=== PATIENT | male | born 1980 | race Caucasian/White ===

== ENCOUNTER 2024-06-02 13:07 | Inpatient (IN) | payer OTHER ==
[2024-06-02 14:17] VITALS: BMI 29.2
[2024-06-02] MEDS ORDERED: NALOXONE (NARCAN) HCL 4 MG/0.1 ML SPRAY NS PRN (14:42)
[2024-06-02] MEDS ORDERED: IBUPROFEN 600 MG TABLET (FP) PO PRN (14:42)
[2024-06-02] MEDS ORDERED: BENZONATATE 200 MG CAPSULE PO PRN (14:42)
[2024-06-02] MEDS ORDERED: POLYETHYLENE GLYCOL (HEALTHYLAX) 3350 17 GM PACKET PO PRN (14:42)
[2024-06-02] MEDS ORDERED: guaiFENesin 600 MG TABLET.ER (FP) PO PRN (14:42)
[2024-06-02] MEDS ORDERED: MAGNESIUM HYDROX 2400MG/30ML ORAL SUSPENSION 30 ML CUP PO PRN (14:42)
[2024-06-02] MEDS ORDERED: BENZOCAINE/MENTHOL (CHLORASEPTIC ) LOZENGE MM PRN (14:42)
[2024-06-02] MEDS ORDERED: DICYCLOMINE HCL 10 MG CAPSULE PO PRN (14:42)
[2024-06-02] MEDS ORDERED: IBUPROFEN 400 MG TABLET (FP) PO PRN (14:42)
[2024-06-02] MEDS ORDERED: BISMUTH SUBSALICYLATE 262 MG/15 ML BTL PO PRN (14:42)
[2024-06-02] MEDS ORDERED: ONDANSETRON *ODT* 4 MG TABLET SL PRN (14:42)
[2024-06-02] MEDS ORDERED: LOPERAMIDE HCL 2 MG CAPSULE PO PRN (14:42)
[2024-06-02] MEDS ORDERED: diazePAM 5 MG TABLET ONE (17:12)
[2024-06-02] MEDS: diazePAM 5 MG TABLET PO SCH (17:16)
[2024-06-02] MEDS: ACETAMINOPHEN 325 MG TABLET (FP) PO PRN (18:22)
[2024-06-02] MEDS: cloNIDine HCL 0.1 MG TABLET PO SCH (18:22)
[2024-06-02] MEDS: ERYTHROMYCIN 0.5% OPHTHALMIC OINTMENT 3.5 GM TUBE OD SCH (19:30)
[2024-06-02] MEDS: NICOTINE POLACRILEX 2 MG GUM BUC PRN (21:23)
[2024-06-02] MEDS: diazePAM 5 MG TABLET PO PRN (21:27)
[2024-06-02] MEDS: THIAMINE 100 MG TABLET PO SCH (21:28)
[2024-06-02] MEDS: MELATONIN 5 MG TABLETS PO SCH (21:28)
[2024-06-03] MEDS: methaDONE HCL 40 MG DISPERSABLE TABLET PO SCH (05:53)
[2024-06-03] MEDS: MAG HYDROX/AL HYDROX/SIMETH 30 ML UNIT-DOSE CUP PO PRN (05:54)
[2024-06-03] MEDS: hydrOXYzine PAMOATE 25 MG CAPSULE (FP) PO PRN (09:04)
[2024-06-03] MEDS: METHOCARBAMOL 500 MG TABLET PO PRN (09:04)
[2024-06-03] MEDS: PRENATAL VITAMINS W/ FOLIC ACID TABLET (FP) PO SCH (10:30)
[2024-06-03 11:30] LABS: HEMATOCRIT 41.5 % (40.1-51.0); HEMOGLOBIN 13.3 g/dL (13.7-17.5); MEAN CELL VOLUME 95.4 fl (79.0-92.2); MEAN PLT VOLUME 13.4 fl (9.4-12.4); PLATELET COUNT 165 x10^3/uL (163-337); RDW 13.2 % (12.1-15.9)
[2024-06-03 11:33] LABS: POTASSIUM 3.8 mmol/L (3.5-5.1)
[2024-06-03 11:54] LABS: ALBUMIN 3.7 g/dl (3.4-5.0); BLOOD UREA NITROGEN 23.1 mg/dL (7-18); CALCIUM 9.1 mg/dL (8.5-10.1)
[2024-06-03 11:57] LABS: CREATININE 0.9 mg/dL (0.55-1.3)
[2024-06-03 11:59] LABS: TOT PROT 7.2 g/dl (6.4-8.2)
[2024-06-03 12:01] LABS: BILIRUBIN,TOTAL 0.3 mg/dL (0.2-1)
[2024-06-04] MEDS: diazePAM 5 MG TABLET PO SCH (05:45)
[2024-06-04] MEDS: methaDONE HCL 10 MG TABLET PO ONE (09:58)
[2024-06-04] MEDS: cloNIDine HCL 0.1 MG TABLET PO PRN (17:18)
[2024-06-05] MEDS: diazePAM 5 MG TABLET PO SCH (05:50)
[2024-06-05] MEDS: methaDONE HCL 10 MG TABLET PO ONE (09:30)
[2024-06-06] MEDS: diazePAM 5 MG TABLET PO ONE (05:38)
[2024-06-06] MEDS: methaDONE HCL 10 MG TABLET PO ONE (10:02)
[2024-06-06 12:33] VITALS: BP 129/85; PULSE 89; RESP 18; TEMP 97.9
[2024-06-07] MEDS ORDERED: methaDONE HCL 10 MG TABLET PO ONE (10:00)
[2024-06-08 21:07] LABS: HCV RNA GENOTYPE 1a (.)
== END 2024-06-06 11:24 | disposition home or self-care (01) | DRG 773 ==
LOC: YASAS 13:07 → Y6N 17:10
PROVIDERS: ADMIT Allergy & Immunology; ATTEND Allergy & Immunology
PROC: HZ2ZZZZ Detoxification Services for Substance Abuse Treatment (ICD-10-PCS; principal; 2024-06-02)
DX: F10.230 Alcohol dependence with withdrawal, uncomplicated (principal); F11.20 Opioid dependence, uncomplicated; F13.20 Sedative, hypnotic or anxiolytic dependence, uncomplicated; F17.210 Nicotine dependence, cigarettes, uncomplicated; F19.282 Other psychoactive substance dependence with psychoactive substance-induced sleep disorder; F19.280 Other psychoactive substance dependence with psychoactive substance-induced anxiety disorder; F41.9 Anxiety disorder, unspecified; F43.10 Post-traumatic stress disorder, unspecified; B18.2 Chronic viral hepatitis C; H10.9 Unspecified conjunctivitis; Z91.410 Personal history of adult physical and sexual abuse; Z63.0 Problems in relationship with spouse or partner
CPT/HCPCS: 36415; 80053; 80305; 80307; 85027; 86780; 87522; 87811; 87902; 93005; 93010